=== PATIENT | male | born 1960 | race Two or more races ===

== ENCOUNTER 2023-11-23 14:18 | Outpatient (CLI) | payer OTHER | END 2023-11-23 14:31 | disposition home or self-care (01) | LOC: SONOGRAMA 14:18 | PROVIDERS: ATTEND Internal Medicine Endocrinology, Diabetes & Metabolism | DX: E04.8 Other specified nontoxic goiter (principal) ==

== ENCOUNTER 2024-12-16 09:15 | Inpatient (IN) | payer OTHER ==
[~2024-12-16] VITALS: Ht 172.7 cm; Wt 64.9 kg
[2024-12-16] MEDS ORDERED: TAMS0.4C PO (10:24)
[2024-12-16] MEDS ORDERED: COZAAR50 MG PO (10:24)
[2024-12-16] MEDS ORDERED: ROSUVASTATIN CA10 MG PO (10:25)
[2024-12-16 10:36] VITALS: BP 147/80
[2024-12-16 10:36] LABS: HEMATOCRIT 41.6 % (39.0-48.0); HEMOGLOBIN 14.1 g/dL (13-16.00); MEAN CELL VOLUME 89.2 fL (80.0-100.00); MEAN CORPUSCULAR HEMOGLOBIN 30.2 pg (27.00-32.0); MEAN CORPUSCULAR HGB CONC 33.9 g/dl (32.0-36.0); PLATELET COUNT 203 K/uL (150-450); RED BLOOD COUNT 4.66 M/uL (4.00-6.00); RED CELL DISTRIBUTION WIDTH 15.1 % (11.5-14.5)
[2024-12-16 10:53] LABS: INR 1.02; PARTIAL THROMBOPLASTIN TIME 25.4 SECONDS (22.0-34.0); PROTHROMBIN TIME 11.1 SECONDS (9.0-11.5)
[2024-12-16 10:54] LABS: URINE APPEARANCE Clear; URINE BILIRRUBIN Negative (NEGATIVE); URINE BLOOD Negative; URINE COLOR Yellow; URINE GLUCOSE Negative (NEGATIVE); URINE KETONE Negative (NEGATIVE); URINE LEUKOCYTE Negative; URINE NITRATE Negative; URINE PROTEIN Negative (NEGATIVE); URINE UROBILINOGEN 0.2 E.U./dl
[2024-12-16 10:55] LABS: URINE BACTERIA 6.1 uL (0.0-1933); URINE RBC 21.1 uL (0.0-20.8)
[2024-12-16 11:02] LABS: URINE EPITHELIAL CELLS 0.3 uL (0.0-38.8); URINE WBC 0.6 uL (0.0-23.2)
[2024-12-16 11:55] LABS: ALBUMIN 4.2 gm/dL (3.4-5.0); BILIRUBIN TOTAL 0.86 mg/dL (0.3-1.2); CALCIUM 9.9 mg/dL (8.5-10.1); CREATININE SERUM 1.32 mg/dL (0.70-1.30); GFR 54.96; GLOBULINA 3.6 G/DL (2.4-3.5); POTASSIUM 4.52 mEq/L (3.5-5.1); TOTAL PROTEIN 7.8 gm/dL (6.4-8.2)
[2024-12-22] MEDS ORDERED: DEXAMETHASONE SODIUM PHOSPHATE 4 MG/ML VIAL ONE (07:01)
[2024-12-22] MEDS ORDERED: ENALAPRILAT DIHYDRATE 1.25 MG/ML VIAL IV PRN (15:15)
[2024-12-22] MEDS ORDERED: ONDANSETRON HCL 2 MG/ML VIAL IV PRN (15:15)
[2024-12-22] MEDS ORDERED: TRAMADOL HCL 50 MG TABLET PO PRN (15:15)
[2024-12-22] MEDS ORDERED: CYCLOBENZAPRINE HCL 5 MG TABLET PO SCH (17:00)
[2024-12-22] MEDS ORDERED: GABAPENTIN 100 MG CAPSULE PO SCH (17:00)
[2024-12-22] MEDS ORDERED: ACETAMINOPHEN 500 MG GEL..CAP PO SCH (17:00)
[2024-12-22 18:07] VITALS: BP 143/78; O2SAT 96
[2024-12-23] VITALS: BP 131/72; O2SAT 96
[2024-12-23] MEDS ORDERED: LEVOTHYROXINE SODIUM 112 MCG TABLET PO SCH (06:00)
[2024-12-23 08:57] VITALS: BP 124/72; O2SAT 97
[2024-12-23] MEDS ORDERED: TAMSULOSIN HCL 0.4 MG CAP PO SCH (09:00)
[2024-12-23] MEDS ORDERED: LOSARTAN POTASSIUM 50 MG TABLET PO SCH (09:00)
[2024-12-23] MEDS ORDERED: ROSUVASTATIN CALCIUM 10 MG TABLET PO SCH (09:00)
== END 2024-12-23 11:54 | disposition home or self-care (01) | DRG 627 ==
LOC: SURH 12-22 05:24 → O/R 12-22 05:24 → SURH 12-22 09:15 → SURG 12-22 13:35 → SURH 12-22 14:50
PROVIDERS: ADMIT Surgery; ATTEND Surgery
PROC: 0GTK0ZZ Resection of Thyroid Gland, Open Approach (ICD-10-PCS; principal; 2024-12-22)
DX: E04.2 Nontoxic multinodular goiter (principal)